=== PATIENT | female | born 1960 | race Caucasian/White ===

== ENCOUNTER 2024-01-26 10:58 | Outpatient (OUT) | payer MEDICARE, SELFPAY ==
--- NOTE | 2024-01-26 11:07 | XR_ITS ---
The [address] [address] Patient Name: SANDER ROSS MRN: [id number] date: 1960 Sex: F Assigned Patient Location: [facility] Current Patient Location: [facility] Accession/Order Number: [id number] Exam Date: 01/26/2024 11:45 Report Date: 01/26/2024 13:29 At the request of: DOMENICO GAMBOA Procedure: XR chest 2V EXAM: XR chest 2V HISTORY: Preop exam COMPARISON: None. TECHNIQUE: Upright PA and lateral chest x-ray FINDINGS: The heart is not enlarged and the vasculature is not distended. No acute infiltrate, effusion or pneumothorax is identified. Flattening of the hemidiaphragms suggest COPD. The osseous structures are grossly intact except for a compression fracture in the mid thoracic spine. XR/XR chest 2V IMPRESSION: No acute infiltrate or evidence of cardiac decompensation. Mild chronic changes are present, and comparison with a previous study may be helpful in determining the chronicity is findings. Noted is a compression deformity in the mid thoracic spine, of indeterminate age. Electronically authenticated by: MARIYA WARREN Date: 01/26/2024 13:29
--- NOTE | 2024-01-26 11:07 | ECG_ITS ---
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
--- NOTE | 2024-01-26 11:49 | PM.PRESUREVA ---
History of Present Illness History of Present Illness Chief complaint: bladder tumors Narrative: Patient presents for preadmission testing accompanied by her daughter. The patient and daughter both provide history as the patient does have a memory impairment. The patient states she has a history of bladder cancer and has had a TURBT in the past followed by a scope and is now scheduled for another TURBT. The patient denies any complaints related to her bladder. She states she does not have dysuria, hematuria, or any other complaints. Review of Systems ROS Narrative REVIEW OF SYSTEMS: Negative except as stated in HPI, ten or more systems reviewed. Constitutional: No fever, chills, weakness ENT: No sore throat or epistaxis Cardiovascular: No edema, chest pain, or palpitations; admits to dyspnea on exertion Respiratory: Chronic shortness of breath and cough Musculoskeletal: Chronic joint pain Gastrointestinal: No abdominal pain, constipation, diarrhea, or vomiting Genitourinary: No dysuria or hematuria Neurological: No numbness, tingling, weakness, or headache Psychiatric: No mood changes PFSH [facility] Medical History (Updated 01/26/24 @ 11:48 by Judy Dubose NP) Breast abscess ?N61.1 - Abscess of the breast and nipple (ICD-10) Urothelial carcinoma of bladder ?C67.9 - Malignant neoplasm of bladder, unspecified (ICD-10) Hematuria ?R31.9 - Hematuria, unspecified (ICD-10) Pulmonary nodule ?R91.1 - Solitary pulmonary nodule (ICD-10) Osteopenia ?M85.80 - Other specified disorders of bone density and structure, unspecified site (ICD-10) Neuropathy ?G62.9 - Polyneuropathy, unspecified (ICD-10) Memory impairment ?R41.3 - Other amnesia (ICD-10) Neck pain ?M54.2 - Cervicalgia (ICD-10) Back pain ?M54.9 - Dorsalgia, unspecified (ICD-10) Hyperlipidemia ?E78.5 - Hyperlipidemia, unspecified (ICD-10) Cough ?R05.9 - Cough, unspecified (ICD-10) Chronic pain syndrome ?G89.4 - Chronic pain syndrome (ICD-10) Chronic bronchitis ?J42 - Unspecified chronic bronchitis (ICD-10) Carpal tunnel syndrome ?G56.00 - Carpal tunnel syndrome, unspecified upper limb (ICD-10) Leg pain ?M79.606 - Pain in leg, unspecified (ICD-10) Joint pain ?M25.50 - Pain in unspecified joint (ICD-10) Rheumatoid arthritis ?M06.9 - Rheumatoid arthritis, unspecified (ICD-10) Arthritis ?M19.90 - Unspecified osteoarthritis, unspecified site (ICD-10) Depression ?F32.A - Depression, unspecified (ICD-10) Anxiety ?F41.9 - Anxiety disorder, unspecified (ICD-10) Chronic obstructive pulmonary disease ?J44.9 - Chronic obstructive pulmonary disease, unspecified (ICD-10) Asthma ?J45.909 - Unspecified asthma, uncomplicated (ICD-10) Head injury ?S09.90XA - Unspecified injury of head, initial encounter (ICD-10) Seizures ?R56.9 - Unspecified convulsions (ICD-10) Bladder tumor ?D49.4 - Neoplasm of unspecified behavior of bladder (ICD-10) Dyspnea on exertion ?R06.09 - Other forms of dyspnea (ICD-10) Hypertension ?I10 - Essential (primary) hypertension (ICD-10) Surgical History (Updated 01/26/24 @ 11:48 by Judy Dubose NP) H/O transurethral resection of bladder tumor (TURBT) ?Z98.890 - Other specified postprocedural states (ICD-10) ?Z86.03 - Personal history of neoplasm of uncertain behavior (ICD-10) History of hernia repair ?Z98.890 - Other specified postprocedural states (ICD-10) ?Z87.19 - Personal history of other diseases of the digestive system (ICD-10) History of section ?Z98.891 - History of uterine scar from previous surgery (ICD-10) History of carpal tunnel release ?Z98.890 - Other specified postprocedural states (ICD-10) S/P cystoscopy ?Z98.890 - Other specified postprocedural states (ICD-10) History of bladder surgery ?Z98.890 - Other specified postprocedural states (ICD-10) Family History (Updated 01/26/24 @ 11:30 by Judy Dubose NP) Other Cancer Family history of diabetes mellitus Family history of hypertension Family history of myocardial infarction Social History (Updated 01/26/24 @ 11:23 by Judy Dubose NP) Within the past year, how often did you have a drink containing alcohol: never Score interpretation: A score less than 3 is consistent with normal alcohol consumption. Smoking status: Current every day smoker What tobacco products do you use: cigarettes Cigarettes per day: 3 Years smoked: 50 Smoking pack-years: 7.50 Non-prescribed substance use: cannabis (any form) Highest level of school completed/degree received: high school graduate Meds Home Medications and Allergies Home Medications ?Medication ?Instructions ?Recorded ?Confirmed ?Type albuterol sulfate 90 mcg/actuation 2 inh inhalation Q6H PRN shortness 01/26/24 01/26/24 History aerosol inhaler of breath or wheezing atorvastatin 10 mg tablet 10 mg PO DAILY 01/26/24 01/26/24 History fluticasone propionate 50 1 spray intranasal Q12H PRN 01/26/24 01/26/24 History mcg/actuation nasal allergy symptoms spray,suspension gabapentin 800 mg tablet 800 mg PO TID 01/26/24 01/26/24 History hydrocodone 5 mg-acetaminophen 325 1 tab PO Q6H PRN pain 01/26/24 01/26/24 History mg tablet lisinopril 10 mg tablet 10 mg PO QPM 01/26/24 01/26/24 History Allergies Allergy/AdvReac Type Severity Reaction Status Date / Time No Known Drug Allergies Allergy Verified 01/26/24 11:18 Exam Narrative Exam Narrative: Constitutional: Awake, alert, comfortable, well-appearing, nontoxic, interactive, vital signs as charted Head: Normocephalic, atraumatic Neck: Supple, normal appearance, normal range of motion, no meningeal signs, no lymphadenopathy Respiratory: No respiratory distress, breath sounds diminished throughout, productive cough noted Cardiovascular: Regular rate and rhythm, strong and regular heart tones Abdomen: Nontender, normal bowel sounds, soft, no CVA tenderness Musculoskeletal: Normal gait, no swelling or edema Skin: No rashes or induration, no lesions, only visible skin inspected Neuro: No neurological deficits, normal sensation Psychiatric: Oriented ?3, poor insight, poor memory Assessment and Plan Assessment and Plan (1) Bladder tumor: Plan Cystoscopy, TURBT scheduled with Dr. Pollock February 09, 2024.
[2024-01-26 11:51] LABS: Basophils Absolute Auto 0.1 10^3/uL (0.0-0.1); Basophils Percent Auto 0.7 % (0.2-2.0); Eosinophils Absolute Auto 0.1 10^3/uL (0.0-0.7); Eosinophils Percent Auto 1.4 % (0.9-7.0); Hemoglobin 14.4 g/dL (12.0-16.0); Immature Granulocytes Abs Auto 0.03 10^3/uL (0.00-0.03); Immature Granulocytes Pct Auto 0.3 % (0.0-0.5); Lymphocytes Absolute Auto 1.7 10^3/uL (1.2-3.8); Lymphocytes Percent Auto 18.4 % (20.5-60.0); Mean Corpuscular HGB Conc 35.1 g/dL (29.9-35.2); Mean Corpuscular Volume 96.7 fL (81.0-99.0); Mean Platelet Volume 9.4 fL (9.5-13.5); Monocytes Absolute Auto 0.7 10^3/uL (0.3-0.8); Neutrophils Absolute Auto 6.4 10^3/uL (1.4-6.5); Neutrophils Percent Auto 71.2 % (43.0-75.0); Platelet Count 289 10^3/uL (150-450); Red Blood Count 4.24 10^6/uL (4.20-5.40); Red Cell Distribution Width 12.7 % (11.0-15.0)
[2024-01-26 12:02] LABS: Anion Gap 9.2; BUN Creatinine Ratio 14.6; Calcium 9.4 mg/dL (8.5-10.1); Carbon Dioxide 30.7 mmol/L (21.0-32.0); Chloride 97 mmol/L (98-107); Estimated GFR (African America >60 (>=60); Estimated GFR (Non-African Ame >60 (>=60); Glucose 81 mg/dL (74-106); Potassium 3.9 mmol/L (3.5-5.1); Sodium 133 mmol/L (136-145)
[2024-01-26 12:47] LABS: Partial Thromboplastin Time 28.3 sec (22.3-36.2); Prothrombin Time 10.6 sec (9.0-11.6)
== END 2024-01-26 10:59 | disposition home or self-care (01) ==
LOC: PST 11:03
PROVIDERS: PCP Nurse Practitioner Family; Visit Provider Urology
DX: Z01.810 Encounter for preprocedural cardiovascular examination (principal); Z01.812 Encounter for preprocedural laboratory examination; Z01.818 Encounter for other preprocedural examination; D49.4 Neoplasm of unspecified behavior of bladder
CPT/HCPCS: 71046; 80048; 85025; 85610; 85730; 93005; G0463

== ENCOUNTER 2024-02-09 11:28 | Day surgery (SDC) | payer MEDICARE, MEDICAID, SELFPAY ==
[2024-01-26 11:43] VITALS: BP 145/80; PULSE 83; TEMP 36.8; O2SAT 96; BMI 19.5
[2024-02-09] VITALS (12 sets, daily range): BP systolic 104–153; BP diastolic 75–97; PULSE 85–99; TEMP 36.2–36.6; O2SAT 93–96; BMI 19.7
[2024-02-09] MEDS: LACTATED RINGER'S SOLUTION 1,000 ML 50 ML IV (11:58)
[2024-02-09] MEDS: CEFAZOLIN SODIUM 2 GM/50 ML D5W PREMIX IV (13:02)
[2024-02-09] MEDS: HYDROMORPHONE HCL 0.5 MG/0.5 ML SYRINGE IV (13:54)
--- NOTE | 2024-02-09 14:01 | PM.URSON ---
Urology Surgery Operative Note Operative Note Procedure Date: 02/09/24 Time Out Performed: yes Pre-op Diagnosis: Bladder neck tumor Post-op Diagnosis: same as pre-op Procedures performed: Cystoscopy, transurethral resection of bladder neck tumor Anesthesia: General-ET (Dr. Saenz) Primary Surgeon: Amy Pollock Complications: none Estimated blood loss (mL): 0 Findings: 3 mm papillary tumor at 1 o'clock position proximal urethra, small 1-2 mm papillary frond at 11 o'clock. Fully resected. 2-3+ trabeculated bladder, large diverticulum left lateral wall. Prior resection site left inferior lateral wall well healed, no bladder tumors Specimens: bladder neck tumor Indications for Procedures: 63 year old female with a history of high risk non muscle invasive bladder cancer diagnosed was found to have a small papillary tumor on the proximal urethra/bladder neck on surveillance cystoscopy. Urine cytology negative. After discussion of risks/benefits of management options, she elected to proceed with cystoscopy, transurethral resection of bladder tumor under general anesthesia. Risks were discussed including but not limited to bleeding, pain, infection, damage to surrounding structures, incontinence, recurrence and need for additional procedures. Detailed description of Procedure: Prior to the operating room, informed consent was obtained for the procedures described above. The patient was then taken to the operating suite, transferred to the operating table and received the appropriate dose of preoperative IV antibiotics. Gen. anesthesia ETT was administered and the patient was positioned in the lithotomy position, sterilely prepped and draped in the usual sterile fashion for this procedure. A final timeout was performed confirming the patient's identity, procedure and all present were in agreement to proceed. I began by inserting a 22 Belgian rigid cystoscope into the patient's bladder and performed a thorough cystoscopy with both the 30 and 70 degree lens with the findings as above. The urethra appeared to be normal without evidence of strictures. Bilateral ureteral orificies were seen in orthotopic position effluxing urine. The cystoscope was removed and a 26 Belgian resectoscope was inserted. Bipolar loop electrocautery was used to fully resect the tumor on the bladder neck/proximal urethra. Specimens were sent for pathology. Hemostasis was obtained with electrocautery. The bladder was drained and inspected. There was no evidence of any bleeding from the resection beds. An 18-Belgian two way Yanez catheter (silicone) was inserted without difficulty, irrigated until clear. A bimanual exam was performed which demonstrated normal external genitalia and vagina, mild cystocele. The bladder was mobile without palpable mass. The abdomen was soft and nondistended. The patient tolerated the procedure well without complication. Patient was extubated and sent to PACU for recovery. Plan: Dc home. Follow up in 2 days for in the office for removal and voiding trial. She will follow up in 1-2 weeks in the office for pathology review and the next steps. Post Operative care instructions: see discharge instructions Urinary Catheter Management Urinary Catheter Management Urethral: Cath placed during this visit: no
== END 2024-02-09 15:15 | disposition home or self-care (01) ==
PROVIDERS: PCP Nurse Practitioner Family; Visit Provider Urology
PROC: (CPT 910; principal; 2024-02-09 12:30)
DX: N32.89 Other specified disorders of bladder (principal); F17.210 Nicotine dependence, cigarettes, uncomplicated; J44.9 Chronic obstructive pulmonary disease, unspecified; E78.5 Hyperlipidemia, unspecified; I10 Essential (primary) hypertension; M06.9 Rheumatoid arthritis, unspecified
CPT/HCPCS: 52224; 36415; 88305; J0690; J1100; J1170; J1805; J2250; J2371; J2405; J2704; J3010